=== PATIENT | male | born 1965 | race Caucasian/White ===

== ENCOUNTER 2018-07-03 02:38 | Inpatient (IN) | payer SELFPAY ==
[~2018-07-03] VITALS: Ht 175.3 cm; Wt 77.7 kg
[2018-07-03 03:58] LABS: BASOPHIL % 0.4 % (0-2); PLATELET COUNT 297 x10^3mcL (130-400)
[2018-07-03 04:03] LABS: RED CELL DISTRIBUTION WIDTH 15.4 % (11.5-14.5)
[2018-07-03 04:30] LABS: ALBUMIN 4.2 g/dL (3.4-5.0); ALKALINE PHOSPHATASE 131 U/L (46-116); ALT/SGPT 39 U/L (16-63); AST/SGOT 32 U/L (15-37); BILIRUBIN TOTAL 0.45 mg/dL (0.20-1.00); CALCIUM 9.5 mg/dL (8.5-10.1); CARBON DIOXIDE 22.5 mmol/L (21-32); CHLORIDE SERUM 101 mmol/L (98-107); CHOLESTEROL 146 mg/dL (<200); POTASSIUM SERUM 5.3 mmol/L (3.5-5.1); SODIUM SERUM 145 mmol/L (136-145)
[2018-07-03 04:31] LABS: GFR1 5 mL/min; TOTAL PROTEIN, SERUM 8.7 g/dL (6.4-8.2)
[2018-07-03 04:33] LABS: GLUCOSE SERUM 44 mg/dL (74-106)
[2018-07-03 06:22] VITALS: BP 174/101
[2018-07-03 06:44] LABS: AMPHETAMINE QUAL UR NONE DETECTED (See below)
[2018-07-03 07:12] LABS: MAGNESIUM 2.9 mg/dL (1.8-2.4); PHOSPHOROUS 6.5 mg/dL (2.5-4.9)
[2018-07-03 07:24] LABS: FREE T4 0.85 ng/dL (0.76-1.46); FREE THYROXINE INDEX 2.1 ug/dL (1.4-4.5); T4(THYROXINE) 5.3 ug/dL (4.7-13.3)
[2018-07-03 07:30] VITALS: BP 137/62
[2018-07-03 08:14] LABS: T3 TOTAL 0.8 ng/mL
[2018-07-03 09:25] VITALS: Ht 175.3 cm; Wt 77.7 kg
[2018-07-03 12:37] VITALS: BP 150/64
[2018-07-03] MEDS ORDERED: RENVELA800 M1 PO (14:34)
[2018-07-03] MEDS ORDERED: NEU300 PO (14:35)
[2018-07-03] MEDS ORDERED: ASPIRIN ADULT L81 M5 PO (14:35)
[2018-07-03] MEDS ORDERED: ATORVASTATIN CA10 M1 PO (14:36)
[2018-07-03] MEDS ORDERED: LOSARTAN POTAS100 M1 PO (14:36)
[2018-07-03] MEDS ORDERED: MECLIZINE HYDRO25 M1 PO (14:37)
[2018-07-03] MEDS ORDERED: NOR10 PO (14:42)
[2018-07-03] MEDS ORDERED: CETIRIZINE HYDR10 MG PO (14:42)
[2018-07-03] MEDS ORDERED: SENSIPAR30 M1 PO (14:45)
[2018-07-03] MEDS ORDERED: PROTONIX40 MG PO (14:46)
[2018-07-03] MEDS ORDERED: RENA-VITE RX1 TAB PO (14:46)
[2018-07-03] MEDS ORDERED: ATENOLOL100 MG PO (14:47)
[2018-07-03] MEDS ORDERED: HYDRALAZINE HCL25 MG PO (14:48)
[2018-07-03 16:05] VITALS: BP 148/51
[2018-07-03 18:06] LABS: CALCIUM 8.8 mg/dL (8.5-10.1); CARBON DIOXIDE 23.7 mmol/L (21-32)
[2018-07-03 18:09] LABS: CREATININE SERUM 11.5 mg/dL (0.7-1.3)
[2018-07-03 20:53] VITALS: BP 144/45
[2018-07-03 22:27] LABS: microscopic required? YES; urine erythrocyte 1+ (NEGATIVE)
[2018-07-04 02:46] VITALS: BP 126/50
[2018-07-04 06:07] VITALS: BP 140/44
[2018-07-04 06:10] LABS: PLATELET COUNT 247 x10^3mcL (130-400)
[2018-07-04 06:39] LABS: CALCIUM 8.5 mg/dL (8.5-10.1); CARBON DIOXIDE 28.2 mmol/L (21-32); MAGNESIUM 2.1 mg/dL (1.8-2.4); PHOSPHOROUS 5.3 mg/dL (2.5-4.9); POTASSIUM SERUM 4.4 mmol/L (3.5-5.1)
[2018-07-04 08:55] VITALS: BP 128/41
[2018-07-04 09:50] VITALS: BP 138/48
[2018-07-04 10:46] VITALS: BP 138/48
== END 2018-07-04 11:54 | disposition home or self-care (01) | DRG 917 ==
LOC: ED 02:38 → IC 05:19 → DU 15:59
PROVIDERS: Internal Medicine; Specialist
PROC: 5A1D70Z Performance of Urinary Filtration, Intermittent, Less than 6 Hours Per Day (ICD-10-PCS; principal; 2018-07-04)
DX: T38.3X1A Poisoning by insulin and oral hypoglycemic [antidiabetic] drugs, accidental (unintentional), initial encounter (principal); N18.6 End stage renal disease; I67.4 Hypertensive encephalopathy; I12.0 Hypertensive chronic kidney disease with stage 5 chronic kidney disease or end stage renal disease; R68.0 Hypothermia, not associated with low environmental temperature; Z99.2 Dependence on renal dialysis; E11.65 Type 2 diabetes mellitus with hyperglycemia; D72.829 Elevated white blood cell count, unspecified; Z79.4 Long term (current) use of insulin; E87.5 Hyperkalemia; E83.39 Other disorders of phosphorus metabolism; E83.41 Hypermagnesemia; E11.51 Type 2 diabetes mellitus with diabetic peripheral angiopathy without gangrene; E11.22 Type 2 diabetes mellitus with diabetic chronic kidney disease; E11.649 Type 2 diabetes mellitus with hypoglycemia without coma; Y92.89 Other specified places as the place of occurrence of the external cause
CPT/HCPCS: 82962; 84439; G0480; J0360; J1815; J3490; J7030; Q0092